=== PATIENT | male | born 1975 ===

== ENCOUNTER 2018-04-18 08:11 | Day surgery (SDC) | payer BC ==
[2018-04-18] VITALS (7 sets, daily range): BP systolic 103–124; BP diastolic 60–83
[~2018-04-18] VITALS: Ht 180.3 cm; Wt 83.9 kg
--- NOTE | 2018-04-18 07:19 | Pre-Procedure Note/Attestation ---
Pre-Procedure Note/Attestation Complete Prior to Procedure Planned Procedure: left Procedure Narrative: Left distal biceps rupture repair Indications for Procedure Pre-Operative Diagnosis: Left distal biceps rupture Attestation I attest that I discussed the nature of the procedure; its benefits; risks and complications; and alternatives (and the risks and benefits of such alternatives ), prior to the procedure, with the patient (or the patient's legal billing customer service representative). I attest that, if there was a reasonable possibility of needing a blood transfusion, the patient (or the patient's legal billing customer service representative) was given the [facility] standardized written summary, pursuant to the [place] Blood Safety Act ([place] Health and Safety Code # 1645, as amended). I attest that I re-evaluated the patient just prior to the surgery and that there has been no change in the patient's H&P, except as documented below: Rahul Saab MD Apr 18, 2018 07:19
[2018-04-18] MEDS ORDERED: NKM (09:05)
--- NOTE | 2018-04-18 10:03 | Anethesia Preoperative Eval ---
Anesthesia Pre-op PMH/ROS General Date of Evaluation: Apr 18, 2018 Anesthesiologist: Ramone ASA Score: ASA 1 Mallampati Score Class I : Soft palate, uvula, fauces, pillars visible Class II: Soft palate, uvula, fauces visible Class III: Soft palate, base of uvula visible Class IV: Only hard plate visible Mallampati Classification: Class II Surgeon: Kaiser Diagnosis: Left Biceps tendon rupture Surgical Procedure: Left biceps tendon repair Anesthesia History: none Family History: no anesthesia problems Allergies: Coded Allergies: No Known Allergies (Unverified , 04/18/18) Medications: see eMAR Patient NPO?: Yes NPO Date: Apr 18, 2018 NPO Time: 22:00 Past Medical History Cardiovascular: Denies: HTN, CAD, MS, valve dz, arrhythmia, other Pulmonary: Denies: asthma, COPD, MAYELIN, other Gastrointestinal/Genitourinary: Denies: GERD, CRI, ESRD, other Neurologic/Psychiatric: Denies: dementia, CVA, depression/anxiety, TIA, other Endocrine: Denies: DM, hypothyroidism, steroids, other HEENT: Denies: cataract (L), cataract (R), glaucoma, TE-MOAK (L), TE-MOAK (R), other Hematology/Immune: Denies: anemia, DVT, bleeding disorder, other Musculoskeletal/Integumentary: Denies: OA, RA, DJD, DDD, edema, other PSxH Narrative: lap appy Anesthesia Pre-op Phys. Exam Physician Exam Last Vital Signs Date Time Temp Pulse Resp B/P (MAP) Pulse Ox O2 Delivery O2 Flow Rate FiO2 04/18/18 09:11 98.5 63 20 121/83 97 Room Air Constitutional: NAD Cardiovascular: RRR Respiratory: CTA Airway Exam Mallampati Score: Class I MO: full ROM: full Teeth: intact Anesthesia Pre-op A/P Labs see chart Risk Assessment & Plan Assessment: ASA I Plan: GA Status Change Before Surgery: No Pre-Antibiotics Drug: Ancef 2g Given Within 1 Hr of Incision: Yes Rosaline Jarrett MD Apr 18, 2018 10:02
[2018-04-18] MEDS ORDERED: Bupivacaine w/Epi 0.5% 30ml Vial INJ ONE (10:55)
[2018-04-18] MEDS ORDERED: Bacitracin 50000 Units Vial ONE (10:55)
[2018-04-18] MEDS ORDERED: LR 1000ml ONE (11:00)
[2018-04-18] MEDS ORDERED: Sterile Water Irrig 1000ml IRRIG ONE (11:00)
[2018-04-18] MEDS ORDERED: NS Irrig 1000ml ONE (11:00)
[2018-04-18] MEDS ORDERED: Propofol 200mg/20ml IV ONE (11:11)
[2018-04-18] MEDS ORDERED: Lidocaine 1% MPF 10mg/ml 5ml ONE (11:11)
[2018-04-18] MEDS ORDERED: fentaNYL 100 mcg/2 mL IV ONE (11:12)
[2018-04-18] MEDS ORDERED: Midazolam 2mg/2ml Inj ONE (11:12)
[2018-04-18] MEDS ORDERED: Ketorolac 30mg Inj ONE (11:37)
[2018-04-18] MEDS ORDERED: Dexamethasone 4mg/ml vial ONE (11:37)
[2018-04-18] MEDS ORDERED: LR 1000ml 1,000 ML IVLG SCH (11:39)
[2018-04-18] MEDS ORDERED: Ketorolac 30mg Inj IV PRN (11:45)
[2018-04-18] MEDS ORDERED: LORazepam Inj 2mg/ml 1ml IV PRN (11:45)
[2018-04-18] MEDS ORDERED: Hydromorphone 0.5mg/0.5ml inj IVP PRN (11:45)
[2018-04-18] MEDS ORDERED: Midazolam 2mg/2ml Inj IVP PRN (11:45)
[2018-04-18] MEDS ORDERED: fentaNYL 100 mcg/2 mL IV PRN (11:45)
[2018-04-18] MEDS ORDERED: Metoclopramide 10mg/2ml Inj IVP PRN (11:45)
[2018-04-18] MEDS ORDERED: DiphenhydrAMINE 50mg/ml Inj IVP PRN (11:45)
--- NOTE | 2018-04-18 13:09 | Immediate Post-Op Evaluation ---
Immediate Post-Op Evalulation Immediate Post-Op Evalulation Procedure: Left biceps tendon repair Date of Evaluation: Apr 18, 2018 Time of Evaluation: 13:08 IV Fluids: 900 Blood Products: 0 Estimated Blood Loss: min Urinary Output: 0 Blood Pressure Systolic: 103 Blood Pressure Diastolic: 60 Pulse Rate: 54 Respiratory Rate: 16 O2 Sat by Pulse Oximetry: 97 Temperature (Fahrenheit): 97.5 Pain Score (1-10): 0 Nausea: No Vomiting: No Complications 0 Patient Status: awake, reacts, patent, none Hydration Status: adequate Drug: Ancef 2g Given Within 1 Hr of Incision: Yes Time Given: 11:20 Rosaline Jarrett MD Apr 18, 2018 13:09
--- NOTE | 2018-04-18 13:10 | 48 Hour Post Anesthesia Eval ---
Post Anesthesia Evaluation Procedure: Left biceps tendon repair Date of Evaluation: Apr 18, 2018 Airway: patent Nausea: No Vomiting: No Pain Intensity: 0 Hydration Status: adequate Cardiopulmonary Status: at baseline Mental Status/LOC: patient returned to baseline Post-Anesthesia Complications: 0 Follow-up care needed: ready to discharge Rosaline Jarrett MD Apr 18, 2018 13:10
--- NOTE | 2018-04-18 13:29 | Brief Operative Note ---
Immediate Post Operative Note Operative Note Pre-op Diagnosis: Left distal biceps rupture Procedure: Left distal biceps repair Post-op Diagnosis: same as pre-op Findings: consistent w/pre-op dx studies Surgeon: Kaiser Anesthesiologist: Ramone Anesthesia: general, regional Specimen: none Complications: none Condition: stable Fluids: 100 ml Estimated Blood Loss: minimal Drains: none Implant(s) used?: No Rahul Saab MD Apr 18, 2018 13:29
[2018-04-18] MEDS ORDERED: Morphine Sulfate 2mg/ml Inj IVP PRN (13:30)
[2018-04-18] MEDS ORDERED: Tylenol #3 tab (300mg/30mg) ORAL PRN (13:30)
[2018-04-18] MEDS ORDERED: HYDROmorphone 1mg/ml Carpuject SUBQ PRN (13:30)
[2018-04-18] MEDS ORDERED: Norco 5mg/325mg tab ORAL PRN (13:30)
--- NOTE | 2018-04-18 21:45 | Operative Note - Dictated ---
DATE OF OPERATION: 04/18/2018 SURGEON: Rahul Saab M.D. ([facility] – [place], [place]) COMPUTING CONSULTANT: None. ANESTHESIA: General plus regional. COMPLICATIONS: None. ANTIBIOTICS: Ancef. PREOPERATIVE DIAGNOSIS: Left distal biceps rupture. POSTOPERATIVE DIAGNOSIS: Left distal biceps rupture. PROCEDURE PERFORMED: 1. Left distal biceps rupture repair using two incision technique. 2. Left long arm splinting. BACKGROUND: The patient sustained a left nondominant distal biceps rupture. All risks, benefits, and alternatives to surgical intervention were discussed in great detail. Risks included, but were not limited to, bleeding, infection, neurovascular injury, need for additional surgical intervention, failure of pain relief, arthrofibrosis, complications of anesthesia, blood clots, stroke, heart attack, and potentially . He understood these risks, amongst others including radioulnar synostosis, re-rupture, elbow stiffness, and limited pronation and supination, and consent was signed. PROCEDURE IN DETAIL: The patient was brought to the operating room and placed supine on the operating table. The left upper extremity was correctly verified for surgical site and prepped and draped in standard sterile fashion. Exam under anesthesia revealed a proximally retracted distal biceps contour. The tourniquet was not used at any time during the operation. A transverse incision was created in the antecubital fossa along the Lissette's line crease and great care was taken to protect the lateral antebrachial cutaneous nerve, which was quite large and readily identified. The venous structures were left intact as well. Digital palpation revealed the torn end of the biceps. It was brought into the wound and the bulbous end was resected. Two fiber loops were passed off and whip stitch along the suture four ends of suture came from the end. Attention was then turned to the second incision. Using digital palpation to locate the radial tuberosity, a hemostat was placed taking great care to remain on the ulnar side of the radius touching only the radius. A 3 cm incision was created along the dorsal aspect of the forearm centered over the hemostat. Dissection was carried down through the lateral fascia and musculature. The forearm was kept in pronation to protect the posterior interosseous nerve at all times. The radial tuberosity was readily identified and palpated. A bur was used to create a bleeding trough into which the tendon would be secured. Three drill holes were created with significant bone bridges for the repair site. Using a [employer] suture passer curved to 90 degrees, the distal biceps tendon was brought past the fixation site to be sure the excursion was sufficient. Taking care not to cross any sutures, the sutures were passed through the drill holes and tied over bone bridges. There was excellent tension and abnormal contour of the left distal biceps after repair. Testing to -10 degrees revealed no stress at the repair site, and 90 degrees of elbow flexion, pronation and supination moved the repaired tendon as anatomically anticipated. Copious irrigation was used in both wounds. They were then closed with 0 Vicryl 2-0 Vicryl, and Monocryl for skin. Steri-Strips were used over Mastisol. Dry sterile dressing was applied. A long-arm splint was fashioned out of fiberglass. The sling was secured. He tolerated the procedure well. There were no complications. I attest I performed the entire operation. He was transferred to recovery in good condition. Rahul Saab M.D. DR: SAW JOB#: [id number] CC:
== END 2018-04-18 15:00 | disposition home or self-care (01) ==
LOC: SUR 08:11
DX: S46.212A Strain of muscle, fascia and tendon of other parts of biceps, left arm, initial encounter (principal)
CPT/HCPCS: 24342; J0690; J1100; J1170; J1885; J2250; J2405; J2704; J3010